=== PATIENT | female | born 1950 | race American Indian/Alaskan Native ===

== ENCOUNTER 2020-09-10 23:25 | Emergency (ER) | payer SELFPAY ==
[2020-09-11 00:27] VITALS: BP 123/89
--- NOTE | 2020-09-11 00:35 | Emergency Department Report ---
ED General Adult HPI - General Chief complaint: Extremity Injury, Lower Stated complaint: RIGHT LEG PAIN Time Seen by Provider: 09/11/20 00:26 Source: patient Mode of arrival: Ambulatory Limitations: No Limitations - History of Present Illness Initial comments: 69-year-old female presents emergency department with daughter mom reports a known history of arthritis complains of having a flareup. Pain is worse with palpation and range of motion she denies any known trauma states has been feeling well her knee brace, ice and use heat for with minimal improvement. -: Gradual Quality: dull Consistency: constant Improves with: none Worsens with: none Treatments Prior to Arrival: none - Related Data Previous Rx's Medication Instructions Recorded Last Taken Type Acetaminophen/Codeine [Tylenol 1 tab PO Q8H PRN #7 tab 09/11/20 Unknown Rx /Codeine # 3 tab] Meloxicam [Mobic] 7.5 mg PO QDAY #7 tablet 09/11/20 Unknown Rx Allergies Allergy/AdvReac Type Severity Reaction Status Date / Time No Known Allergies Allergy Unverified 09/11/20 00:31 ED Review of Systems ROS: Stated complaint: RIGHT LEG PAIN Other details as noted in HPI Comment: All other systems reviewed and negative ED Past Medical Hx - Past Medical History Previous Medical History?: Yes Hx Hypertension: Yes Hx Arthritis: Yes (Right Knee) Additional medical history: Chronic Right Knee pain. - Surgical History Past Surgical History?: Yes Additional Surgical History: Hernia Repair - Social History Smoking Status: Never Smoker Substance Use Type: None - Medications Home Medications: Home Medications Medication Instructions Recorded Confirmed Last Taken Type Acetaminophen/Codeine [Tylenol 1 tab PO Q8H PRN #7 tab 09/11/20 Unknown Rx /Codeine # 3 tab] Meloxicam [Mobic] 7.5 mg PO QDAY #7 tablet 09/11/20 Unknown Rx ED Physical Exam - General Limitations: No Limitations General appearance: alert, in no apparent distress - Head Head exam: Present: atraumatic, normocephalic - Eye Eye exam: Present: normal appearance, PERRL, EOMI Pupils: Present: normal accommodation - ENT ENT exam: Present: normal exam, normal orophraynx, mucous membranes moist, TM's normal bilaterally - Neck Neck exam: Present: normal inspection, full ROM - Respiratory Respiratory exam: Present: normal lung sounds bilaterally. Absent: respiratory distress - Cardiovascular Cardiovascular Exam: Present: regular rate, normal rhythm. Absent: bradycardia, tachycardia, systolic murmur, diastolic murmur, rubs, gallop - GI/Abdominal GI/Abdominal exam: Present: soft, normal bowel sounds - Extremities Exam Extremities exam: Present: normal inspection, tenderness, joint swelling - Expanded Lower Extremity Exam Right Knee exam: Present: tenderness, swelling, abrasion. Absent: laceration, deformity, crepidus 1 - Scabbed wound to the 2 - Abrasions to this region healing - Back Exam Back exam: Present: normal inspection. Absent: CVA tenderness (R), CVA tenderness (L) - Neurological Exam Neurological exam: Present: alert, oriented X3, CN II-XII intact - Psychiatric Psychiatric exam: Present: normal affect, normal mood - Skin Skin exam: Present: warm, dry, intact, normal color. Absent: rash ED Course Vital Signs 09/11/20 00:17 Temperature 98.4 F Pulse Rate 98 H Respiratory 20 Rate Blood Pressure 123/89 O2 Sat by Pulse 99 Oximetry ED Medical Decision Making - Radiology Data Radiology results: report reviewed [address] [place] [id number] XRay Report Signed Patient: JACQUELINE THOMPSON MR#: [id number] : 1950 Acct:[id number] Age/Sex: 69 / F ADM Date: 09/10/20 Loc: ED Attending Dr: Ordering Physician: QUINTEN YATES Date of Service: 09/11/20 Procedure(s): XR knee 3V RT Accession Number(s): [id number] cc: QUINTEN YATES Fluoro Time In Minutes: RIGHT KNEE 4 VIEWS INDICATION: Right knee pain. COMPARISON: No relevant prior imaging study available. FINDINGS: No acute, displaced fracture or dislocation is seen. No significant joint effusion is seen. There are advanced tricompartmental degenerative changes. IMPRESSION: 1. No acute findings. Signer Name: Endy Mccormick MD Signed: 09/11/2020 12:45 AM Workstation Name: [id number] Transcribed By: YESI Dictated By: Endy Mccormick MD Electronically Authenticated By: Endy Mccormick MD Signed Date/Time: 09/11/2044 DD/ TD/TT: Critical care attestation.: If time is entered above; I have spent that time in minutes in the direct care of this critically ill patient, excluding procedure time. ED Disposition Clinical Impression: Chronic pain of right knee, Arthritis of knee, degenerative Disposition: - TO HOME OR SELFCARE Is pt being admited?: No Does the pt Need Aspirin: No Condition: Stable Instructions: Chronic Knee Pain, Adult, [id number], Preventing Osteoar thritis, Adult, Chronic Pain, Adult, How to Use Cold Therapy Prescriptions: Meloxicam [Mobic] 7.5 mg PO QDAY #7 tablet Acetaminophen/Codeine [Tylenol /Codeine # 3 tab] 1 tab PO Q8H PRN #7 tab PRN Reason: knee pain Referrals: ALYX VALDOVINOS MD [Staff Physician] - 3-5 Days
--- NOTE | 2020-09-11 00:50 | XRay Report ---
RIGHT KNEE 4 VIEWS INDICATION: Right knee pain. COMPARISON: No relevant prior imaging study available. FINDINGS: No acute, displaced fracture or dislocation is seen. No significant joint effusion is seen. There are advanced tricompartmental degenerative changes. IMPRESSION: 1. No acute findings. Signer Name: Endy Mccormick MD Signed: 09/11/2020 12:45 AM Workstation Name: [id number]
== END 2020-09-11 03:06 | disposition home or self-care (01) ==
LOC: ED 23:25
DX: M17.11 Unilateral primary osteoarthritis, right knee (principal); I10 Essential (primary) hypertension; Z79.899 Other long term (current) drug therapy
CPT/HCPCS: 99283